=== PATIENT | male | born 1985 | race Caucasian/White ===

== ENCOUNTER → 2017-02-12 | Outpatient (CLI) | payer BC ==
--- NOTE | 2017-02-12 14:37 | DIAGNOSTIC IMAGING REPORT ---
CHEST 2 VIEWS ROUTINE HISTORY: Z21 HIV (human immunodeficiency virus infection)R11.2 Nausea and vomiting. Cough. Chest 10/20/2014. COMPARISON: None. FINDINGS: The lungs are clear. Cardiac silhouette is normal in size. No pleural effusions. No pneumothorax. IMPRESSION: No acute process. Electronically signed by: Magdaleno Gandara M.D. 02/12/2017 2:36 PM Dictated Date/Time: 02/12/2017 2:34 PM
[2017-02-12 18:12] LABS: BASO % 0.4 %; BASO ABS # 0.02 K/uL (0-0.2); COMPLETE YES; EOS % 1.5 %; HEMATOCRIT 48.1 % (42-52); IG% 0.4 %; LYMPH % 33.9 %; LYMPH ABS # 1.76 K/uL (1.2-3.4); MEAN CELL VOLUME 85.6 fL (80-100); MEAN CORPUSCULAR HEMOGLOBIN 31.3 pg (25-34); MEAN CORPUSCULAR HGB CONC 36.6 g/dl (32-36); MEAN PLATELET VOLUME 10.6 fL (7.4-10.4); MONO % 7.7 %; NEUT % 56.1 %; PLATELET COUNT 216 K/uL (130-400); RED BLOOD COUNT 5.62 M/uL (4.7-6.1); WHITE BLOOD COUNT 5.19 K/uL (4.8-10.8)
[2017-02-12 18:23] LABS: ALT/SGPT 105 U/L (12-78); AST/SGOT 48 U/L (15-37); BLOOD UREA NITROGEN 14 mg/dl (7-18); BUN/CREATININE RATIO 11.7 (10-20); CALCIUM 8.8 mg/dl (8.5-10.1); CARBON DIOXIDE 25 mmol/L (21-32); CHLORIDE 109 mmol/L (98-107); GLUCOSE 89 mg/dl (70-99); HDL CHOLESTEROL 34 mg/dl; POTASSIUM 3.8 mmol/L (3.5-5.1); SODIUM 141 mmol/L (136-145)
[2017-02-12 18:25] LABS: ALB/GLOB RATIO 1.2 (0.9-2); ALKALINE PHOSPHATASE 131 U/L (45-117); CHOLESTEROL 174 mg/dl (0-200); CHOLESTEROL/HDL RATIO 5.1; LDL CHOLESTEROL CALCULATED 114 mg/dl; TRIGLYCERIDES 131 mg/dl (0-150); VERY LOW DENSITY LIPOPROT CALC 26 mg/dl
== END | disposition home or self-care (01) ==
LOC: C.RADBC 13:57
PROVIDERS: ATTEND Physician Assistant Medical
DX: Z00.00 Encounter for general adult medical examination without abnormal findings (principal); R05 Cough; R11.2 Nausea with vomiting, unspecified; Z21 Asymptomatic human immunodeficiency virus [HIV] infection status

== ENCOUNTER → 2017-02-14 | Outpatient (CLI) | payer BC ==
[2017-02-14 14:17] LABS: URINE APPEARANCE CLEAR (CLEAR); URINE BILIRUBIN NEG (NEG); URINE COLOR YELLOW; URINE NITRITE NEG (NEG); URINE SPECIFIC GRAVITY 1.035 (1.000-1.030); UROBILINOGEN NEG (NEG)
[2017-02-14 14:21] LABS: MANUAL MICROSCOPIC REQUIRED? NO; REVIEW REQ? NO
== END | disposition home or self-care (01) ==
LOC: C.LABBC 09:39
PROVIDERS: ATTEND Physician Assistant Medical
DX: R05 Cough (principal); B20 Human immunodeficiency virus [HIV] disease; R11.2 Nausea with vomiting, unspecified

== ENCOUNTER → 2017-03-13 | Outpatient (CLI) | payer BC ==
[2017-03-15 15:34] LABS: LSP % CELLS ANALYZED CD4 45 % (30-61); LSP ABSOLUTE CT CD4 1189 cells/uL (490-1740); LSP LYMPHOCYTES ABSOLUTE 2658 cells/uL (850-3900)
== END | disposition home or self-care (01) ==
LOC: C.LAB1850 07:19
PROVIDERS: ATTEND Internal Medicine Infectious Disease
DX: B20 Human immunodeficiency virus [HIV] disease (principal)

== ENCOUNTER → 2017-08-04 | Outpatient (CLI) | payer OTHER ==
--- NOTE | 2017-08-04 17:17 | DIAGNOSTIC IMAGING REPORT ---
(TESTICULAR) SCROTUM-CONT HISTORY: Pain. Edema. N45.2 Orchitis COMPARISON: None. FINDINGS: Right testis: Maximum dimension 5.0 cm. Normal vascular flow. Small hydrocele. Normal epididymis. Fat-containing reducible right inguinal hernia. Left testis: Maximum dimension 4.4 cm. Normal vascular flow. Small 3 mm epididymal cyst. Small left-sided varicocele. IMPRESSION: 1. Normal testes bilaterally. 2. Small right hydrocele. 3. Fat-containing reducible right inguinal hernia. 4. Small left-sided varicocele and epididymal cyst. The above report was generated using voice recognition software. It may contain grammatical, syntax or spelling errors. Electronically signed by: Navi Leos M.D. 08/04/2017 5:16 PM Dictated Date/Time: 08/04/2017 5:14 PM
== END | disposition home or self-care (01) ==
LOC: C.ULTR 16:22
PROVIDERS: ATTEND Physician Assistant Medical
DX: N45.2 Orchitis (principal); K40.90 Unilateral inguinal hernia, without obstruction or gangrene, not specified as recurrent; I86.1 Scrotal varices; N50.3 Cyst of epididymis

== ENCOUNTER → 2017-09-05 | Outpatient (CLI) | payer OTHER ==
[2017-09-09 18:33] LABS: LSP % CELLS ANALYZED CD4 44 % (30-61); LSP ABSOLUTE CT CD4 1384 cells/uL (490-1740); TESTOSTERONE,TOTAL 316 ng/dL (250-1100)
== END | disposition home or self-care (01) ==
LOC: C.LAB1850 10:53
PROVIDERS: ATTEND Internal Medicine Infectious Disease
DX: B20 Human immunodeficiency virus [HIV] disease (principal); R68.82 Decreased libido

== ENCOUNTER → 2017-10-07 | Outpatient (CLI) | payer OTHER ==
[~2017-10-07] MED LIST: ALBUAER INH; DOLU1TAB PO; DOXY100C76 PO; EMTR1TAB10 PO; HYDR-5688 PO; LEVO5TAB7 PO; MISC4CAP PO
[2017-10-07 16:46] LABS: BASO % 0.3 %; BASO ABS # 0.02 K/uL (0-0.2); EOS % 1.8 %; EOS ABS # 0.13 K/uL (0-0.5); HEMATOCRIT 43.8 % (42-52); IG# 0.02 K/uL (0.00-0.02); LYMPH % 46.4 %; LYMPH ABS # 3.27 K/uL (1.2-3.4); MEAN CELL VOLUME 84.2 fL (80-100); MEAN CORPUSCULAR HEMOGLOBIN 30.8 pg (25-34); MEAN CORPUSCULAR HGB CONC 36.5 g/dl (32-36); MEAN PLATELET VOLUME 10.1 fL (7.4-10.4); MONO % 7.4 %; MONO ABS # 0.52 K/uL (0.11-0.59); NEUT % 43.8 %; NEUT ABS # 3.08 K/uL (1.4-6.5); PLATELET COUNT 234 K/uL (130-400); RED CELL DISTRIBUTION WIDTH CV 12.4 % (11.5-14.5); RED CELL DISTRIBUTION WIDTH SD 37.4 fL (36.4-46.3); WHITE BLOOD COUNT 7.04 K/uL (4.8-10.8)
[2017-10-07 17:18] LABS: BLOOD UREA NITROGEN 17 mg/dl (7-18); CALCIUM 8.7 mg/dl (8.5-10.1); CARBON DIOXIDE 27 mmol/L (21-32); CREATININE 1.17 mg/dl (0.60-1.40); GLUCOSE 77 mg/dl (70-99); POTASSIUM 3.6 mmol/L (3.5-5.1); SODIUM 138 mmol/L (136-145)
== END | disposition home or self-care (01) ==
LOC: C.LAB1850 15:17
PROVIDERS: ATTEND Surgery
DX: Z01.812 Encounter for preprocedural laboratory examination (principal); K40.90 Unilateral inguinal hernia, without obstruction or gangrene, not specified as recurrent

== ENCOUNTER → 2017-10-10 | Day surgery (SDC) | payer OTHER ==
[2017-09-22 15:10] VITALS: Ht 180.3 cm; Wt 104.5 kg
[~2017-10-10] VITALS: Ht 180.3 cm; Wt 104.5 kg
[~2017-10-10] MED LIST changes: +ATROPINE SULFATE 0.1 MG/ML 5ML SYR IV PRN; +BUPIVACAINE 0.5 % 5 MG/1 ML MPF 30ML VIAL ONE; +CEFAZOLIN 2000MG IV PUSH 15 ML IV SCH; +DEXAMETHASONE SOD INJ 4 MG/ML VIAL ONE; +EpHEDrine SULFATE INJ 50 MG/ML AMP IV PRN; +EpINEphrine INJ 1MG/ML AMP 1 MG/ML AMP ONE; +FENTANYL CITRATE INJ 50 MCG/1 ML 2 ML VIAL IV PRN; +FENTANYL CITRATE INJ 50 MCG/1 ML 2 ML VIAL ONE; +HYDROCODONE/ACETAMIN 5/325MG TAB PO PRN; +LACTATED RINGER'S 1000ML 1,000 ML IV SCH; +LIDOCAINE HCL 2% 2 ML VIAL (20MG/ML) ONE; +MIDAZOLAM HCL 1 MG/ML 2ML VIAL ONE; +ONDANSETRON INJ 2 MG/ML 2 ML VIAL IV PRN; +ONDANSETRON INJ 2 MG/ML 2 ML VIAL ONE; +PROPOFOL IV EMULSION 10 MG/ML 20 ML VIAL ONE; +SODIUM CHLORIDE 0.9% 1000ML 1,000 ML IV SCH
--- NOTE | 2017-10-10 06:46 | History & Physical Bridge Note ---
H&P Re-Evaluation Bridge Note: I have examined the patient, reviewed the History & Physical and in the interval since the performance of the History & Physical I have noted the following changes of clinical significance: No changes noted. right inguinal hernia repair with mesh
--- NOTE | 2017-10-10 08:05 | [facility] Post Operative Brief Note ---
Immediate Operative Summary Operative Date October 10, 2017. Pre-Operative Diagnosis Right Inguinal Hernia Post-Operative Diagnosis Same with cord lipoma Procedure(s) Performed Right Inguinal Hernia Open Repair With Plug and Patch Mesh and Excision of Cord Lipoma Surgeon Dr. De Jesus Supervisor Assembly Surgeon(s) Bharat Farfan PA-C Estimated Blood Loss 5 cc Findings Consistent with Post-Op Diagnosis Specimens None Anesthesia Type General Complication(s) none
--- NOTE | 2017-10-10 08:19 | [facility] Operative Report ---
Operative Report Operative Date October 10, 2017. Pre-Operative Diagnosis Right Inguinal Hernia Post-Operative Diagnosis Same with cord lipoma Procedure(s) Performed Right Inguinal Hernia Open Repair With Plug and Patch Mesh and Excision of Cord Lipoma Surgeon Dr. De Jesus Cruise Guide Surgeon(s) Bharat Farfan PA-C Estimated Blood Loss 5 cc Specimens None Anesthesia Type General Complication(s) none Description of Procedure After informed consent was obtained the patient was taken the operating room and placed in supine position. After successful placement of the laryngeal mask airway the groin was shaved and sterilely prepped and draped in usual fashion. An inguinal incision was made with a 15 blade scalpel and carried down through the soft tissue using electrocautery. The external oblique aponeurosis was skeletonized. A fresh blade was used to make an incision and then Metzenbaum scissors were used to extend this distally through the external ring as well as for several centimeters proximally. Once in the inguinal canal I used blunt finger dissection to free up the cord and cord structures. I was able to gently tease the cord off of the pubic bone and placed a Ludlow drain around it. There was a large direct hernia. We inspected the cord and cord structures using blunt dissection with small amounts of electrocautery. 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 We dissected this down to his neck and then clamped with a hemostat divided with cautery and tied it off with a 3-0 Vicryl tie. We then thoroughly irrigated the wound. Because of the nature of the direct hernia I decided to use a plug and patch technique. I used a polypropylene plug and secured it with 0 Ethibond to the shelving portion of Poupart's ligament Theodore's ligament distally as well as surrounding musculature. Next I used a polypropylene tate-holed mesh as an onlay. It was secured distally to Theodore's ligament, laterally along the shelving portion of Poupart's ligament and medially along the midline musculature. 0 Ethibond was used for the suturing. The "arms" of the mesh were wrapped around behind the cord and cord structures and again secured to underlying muscle. The mesh laid nice and flat and tension-free and did not impinge on the cord structures themselves. We thoroughly irrigated the wound. There was adequate hemostasis. I injected Marcaine around the edges of the mesh for postoperative analgesia. We then closed the external oblique aponeurosis with 2-0 Vicryl in a running fashion. Soft tissue was irrigated and closed in multiple layers using 3-0 Vicryl for the deep layers and 4-0 Monocryl for the skin. Some additional Marcaine was injected around the skin incision. We then used a skin glue as a dressing. The patient was awaken extubated and transferred to recovery in stable condition. My physician's clerical assistant was present throughout the entire procedure. She helped prep the patient. Helped with retraction throughout the case to aid my dissection, assisted with wound closure as well as dressing placement. I attest to the content of the Intraoperative Record and any orders documented therein. Any exceptions are noted below. I attest to the content of the Intraoperative Record and any orders documented therein. Any exceptions are noted below.
--- NOTE | 2017-10-10 08:24 | Discharge Instructions-SurgCtr ---
Discharge Instructions Date of Service October 10, 2017. Visit Reason for Visit: RIGHT INGUINAL hERNIA Discharge Discharge Diagnosis / Problem: Right Inguinal Hernia Discharge Goals Goal(s): Decrease discomfort, Improve function Activity Recommendations Activity Limitations: as noted below Lifting Limitations: no more than 10 pounds Exercise/Sports Limitations: until after follow-up appointment May Resume Sexual Activity: after follow-up appointment Shower/Bathe: tomorrow Driving or Machine Use: resume 1 day after discharge Anesthesia . Post Anesthesia Instructions: If you have had General Anesthesia or IV Sedation: * Do not drive today. * Resume driving when surgeon permits. * Do not make important decisions or sign legal documents today. * Call surgeon for: 1. Temperature elevations greater than 101 degrees F. 2. Uncontrollable pain. 3. Excessive bleeding. 4. Persistent nausea and vomiting. 5. Medication intolerance (nausea, vomiting or rash). * For nausea and vomiting use only clear liquids such as: tea, soda, bouillon until nausea subsides, then gradually increase diet as tolerated. * If you have any concerns or questions, call your surgeon's office. If physician is unavailable and it is an emergency, call 911 or go to the nearest emergency room. . Instructions / Follow-Up Instructions / Follow-Up You have surgical glue, Dermabond, over your incision. You may shower tomorrow , but please do not soak or scrub your incision. Please follow-up with Dr. De Jesus in the [facility] in 1-2 weeks. Please call the [facility] at [phone] to make an appointment if you do not have one already. Please call the [facility] with any questions or concerns. Diet Recommendations Home Diet: no limitations Procedures Procedures Performed: Right Inguinal Hernia Open Repair With Plug and Patch Mesh and Excision of Cord Lipoma Pending Studies Studies pending at discharge: no Medical Emergencies . Who to Call and When: Medical Emergencies: If at any time you feel your situation is an emergency, please call 911 immediately. . Non-Emergent Contact Non-Emergency issues call your: Primary Care Provider, Surgeon Call Non-Emergent contact if: temperature is above 101.5, your pain is not controlled, wound has increased drainage, wound has increased redness . . "Provider Documentation" section prepared by Rena Farfan. .
--- NOTE | 2017-10-10 09:51 | Anesthesia Progress Nt - [facility] ---
Anesthesia Post Op Note Date & Time October 10, 2017 at 09:51 Vital Signs Pain Intensity: 8.0 Vital Signs Past 12 Hours Date Time Temp Pulse Resp B/P (MAP) Pulse Ox O2 Delivery O2 Flow Rate FiO2 10/10/17 09:47 67 16 118/78 (91) 100 Room Air 10/10/17 09:05 36.3 81 16 143/92 (109) 95 Room Air 10/10/17 08:57 79 13 10/10/17 08:57 76 13 95 10/10/17 08:56 149/103 10/10/17 08:54 36.3 78 12 149/103 95 Room Air 10/10/17 08:52 78 15 10/10/17 08:52 15 10/10/17 08:51 17 10/10/17 08:51 81 17 10/10/17 08:51 81 17 10/10/17 08:51 17 10/10/17 08:50 108/86 10/10/17 08:50 108/86 10/10/17 08:46 76 10 100 10/10/17 08:46 76 10 100 10/10/17 08:46 75 10 10/10/17 08:46 75 10 10/10/17 08:45 123/78 10/10/17 08:45 123/78 10/10/17 08:41 80 21 118/74 100 10/10/17 08:41 81 21 10/10/17 08:41 80 21 118/74 100 10/10/17 08:41 81 21 10/10/17 08:36 79 9 10/10/17 08:36 79 9 100 10/10/17 08:36 79 9 100 10/10/17 08:36 79 9 10/10/17 08:35 119/83 10/10/17 08:35 119/83 10/10/17 08:31 87 13 107/76 98 10/10/17 08:31 76 13 10/10/17 08:31 76 13 10/10/17 08:31 87 13 107/76 98 10/10/17 08:26 80 10 10/10/17 08:26 80 10 10/10/17 08:26 79 10 99 10/10/17 08:26 79 10 99 10/10/17 08:25 126/91 5/11/18 08:25 126/91 10/10/17 08:22 125/93 10/10/17 08:22 125/93 10/10/17 08:21 36.2 84 16 125/93 97 Mask 6 10/10/17 06:20 36.6 73 16 131/84 (100) 96 Room Air Notes Mental Status: alert / awake / arousable, participated in evaluation Pt Amnestic to Procedure: Yes Nausea / Vomiting: adequately controlled Pain: adequately controlled Airway Patency, RR, SpO2: stable & adequate BP & HR: stable & adequate Hydration State: stable & adequate Anesthetic Complications: no major complications apparent
[2017-10-10 10:03] VITALS: BP 106/71; PULSE 76; O2SAT 96
== END | disposition home or self-care (01) ==
LOC: X.SURG 06:05
PROVIDERS: ATTEND Surgery
DX: K40.90 Unilateral inguinal hernia, without obstruction or gangrene, not specified as recurrent (principal); Z21 Asymptomatic human immunodeficiency virus [HIV] infection status; Z82.49 Family history of ischemic heart disease and other diseases of the circulatory system; Z83.3 Family history of diabetes mellitus; Z88.8 Allergy status to other drugs, medicaments and biological substances